=== PATIENT | female | born 1970 | race Caucasian/White ===

== ENCOUNTER 2017-12-17 20:43 | Emergency (ER) | payer OTHER ==
[~2017-12-17] VITALS: Ht 165.1 cm; Wt 90.7 kg
[~2017-12-17 20:43] MED LIST: Advil200 M1 PO; GABA300 PO; HYDR1TAB94 PO; IBUP800 PO; Neurontin 300300 MG PO; Zovirax800 MG PO
[2017-12-17] MEDS ORDERED: Zovirax200 MG PO (21:42)
[2017-12-17] MEDS ORDERED: KETO10 PO (21:42)
[2017-12-17] MEDS ORDERED: Neurontin 100100 MG PO (21:42)
== END 2017-12-17 21:55 | disposition home or self-care (01) ==
LOC: ER 20:43
DX: B02.29 Other postherpetic nervous system involvement (principal); B02.9 Zoster without complications; F17.200 Nicotine dependence, unspecified, uncomplicated; Z88.1 Allergy status to other antibiotic agents; Z79.899 Other long term (current) drug therapy
CPT/HCPCS: 99282

== ENCOUNTER → 2018-03-24 | Outpatient (CLI) | payer OTHER ==
[~2018-03-24] MED LIST changes: +Amoxicillin500 MG PO; +KETO10 PO; +Neurontin 100100 MG PO; +Zovirax200 MG PO
[2018-03-26 15:07] LABS: HPV 16 Negative (Negative); HPV 18 Negative (Negative); HPV OTHER HR TYPES Negative (Negative)
== END | disposition home or self-care (01) ==
LOC: LAB 15:34 → LAB SHORT 15:34
PROVIDERS: Obstetrics & Gynecology
DX: Z12.4 Encounter for screening for malignant neoplasm of cervix (principal)
CPT/HCPCS: 87624; G0123

== ENCOUNTER 2018-04-13 11:55 | Emergency (ER) | payer OTHER ==
[~2018-04-13] VITALS: Ht 165.1 cm; Wt 90.7 kg
[2018-04-13] MEDS ORDERED: Naprosyn500 MG PO (13:19)
[2018-04-13] MEDS ORDERED: ALBU90OI INH (13:19)
== END 2018-04-13 13:40 | disposition home or self-care (01) ==
LOC: ER 11:55
DX: J40 Bronchitis, not specified as acute or chronic (principal); Z88.1 Allergy status to other antibiotic agents; F17.210 Nicotine dependence, cigarettes, uncomplicated
CPT/HCPCS: 94640; J1100

== ENCOUNTER 2018-06-26 13:58 | Emergency (ER) | payer OTHER ==
[~2018-06-26] VITALS: Ht 165.1 cm; Wt 95.1 kg
[~2018-06-26 13:58] MED LIST changes: +ALBU90OI INH; +Naprosyn500 MG PO
[2018-06-26] MEDS ORDERED: ONDA4ODT MM (15:28)
== END 2018-06-26 15:36 | disposition home or self-care (01) ==
LOC: ER 13:58
DX: T49.0X1A Poisoning by local antifungal, anti-infective and anti-inflammatory drugs, accidental (unintentional), initial encounter (principal); R11.0 Nausea; Z88.1 Allergy status to other antibiotic agents; Z79.899 Other long term (current) drug therapy; F17.210 Nicotine dependence, cigarettes, uncomplicated
CPT/HCPCS: 99283

== ENCOUNTER 2018-09-22 18:52 | Emergency (ER) | payer OTHER ==
[~2018-09-22] VITALS: Ht 165.1 cm; Wt 91.8 kg
[~2018-09-22 18:52] MED LIST changes: +ONDA4ODT MM
[2018-09-22 19:27] LABS: Source, Urine Clean Catch
[2018-09-22 19:33] LABS: Bilirubin, Urine Neg (Neg); Blood, Urine 2+ (Neg); Glucose Qualitative, Urine Neg (Neg); Ketones, Urine Neg (Neg); Leukocyte Esterase, Urine 3+ (Neg); Nitrite, Urine Neg (Neg); Protein, Urine Neg (Neg); Specific Gravity, Urine 1.025 (1.003-1.022); Urobilinogen, Urine NORM (Normal)
[2018-09-22 19:42] LABS: Appearance, Urine Clear (Clear); Color, Urine Yellow (P-Yellow)
[2018-09-22 19:43] LABS: Bacteria Mod /hpf; Squamous Epithelial Cells Few /hpf (Few); White Blood Cells, Urine 25-50 /hpf (0-5)
[2018-09-22] MEDS ORDERED: CEPH500 PO (20:34)
== END 2018-09-22 20:48 | disposition home or self-care (01) ==
LOC: ER 18:52
PROVIDERS: Physician Assistant
DX: N39.0 Urinary tract infection, site not specified (principal); Z88.1 Allergy status to other antibiotic agents; F17.210 Nicotine dependence, cigarettes, uncomplicated
CPT/HCPCS: 72100; 81001; 87086; 99284-25

== ENCOUNTER 2018-09-28 03:21 | Emergency (ER) | payer OTHER ==
[~2018-09-28] VITALS: Ht 165.1 cm; Wt 88.0 kg
[~2018-09-28 03:21] MED LIST changes: +CEPH500 PO
[2018-09-28 04:18] LABS: Source, Urine Clean Catch
[2018-09-28 04:20] LABS: BASOPHILS ABSOLUTE AUTO 0.08 K/mm3 (0.00-0.23); BASOPHILS PERCENT AUTO 1 % (0-2); EOSINOPHILS ABSOLUTE AUTO 0.22 K/mm3 (0.00-0.68); EOSINOPHILS PERCENT AUTO 2 % (0-6); Hematocrit 42.1 % (33.0-51.0); Hemoglobin 14.2 g/dL (11.5-16.0); IMMATURE GRAN ABSOLUTE AUTO 0.03 K/mm3 (0.00-0.10); IMMATURE GRAN PERCENT AUTO 0 % (0-1); LYMPHOCYTES ABSOLUTE AUTO 3.29 K/mm3 (0.84-5.20); LYMPHOCYTES PERCENT AUTO 29 % (21-46); MONOCYTES ABSOLUTE AUTO 0.75 K/mm3 (0.16-1.47); MONOCYTES PERCENT AUTO 7 % (4-13); Mean Corpuscular HGB 31.9 pg (26.0-34.0); Mean Corpuscular HGB Conc 33.7 g/dL (31.5-36.5); Mean Corpuscular Volume 95 fL (80-100); Mean Platelet Volume 10.3 fL (9.1-12.4); NEUTROPHILS ABSOLUTE AUTO 6.86 K/mm3 (1.96-9.15); NEUTROPHILS PERCENT AUTO 61 % (41-73); Platelet Count 220 K/mm3 (150-400); RDW Coefficient Variation 12.6 % (11.7-14.2); RDW Standard Deviation 43.8 fL (35.1-46.3); Red Blood Cell Count 4.45 M/mm3 (3.80-5.20); White Blood Cell Count 11.23 K/mm3 (4.00-11.30)
[2018-09-28 04:20] LABS: Bilirubin, Urine Neg (Neg); Blood, Urine 3+ (Neg); Glucose Qualitative, Urine Neg (Neg); Ketones, Urine Neg (Neg); Leukocyte Esterase, Urine 3+ (Neg); Nitrite, Urine Neg (Neg); Protein, Urine Neg (Neg); Specific Gravity, Urine 1.025 (1.003-1.022); Urobilinogen, Urine NORM (Normal)
[2018-09-28 04:21] LABS: Appearance, Urine Clear (Clear); Color, Urine Yellow (P-Yellow)
[2018-09-28 04:27] LABS: Bacteria Mod /hpf; Red Blood Cells, Urine 0-2 /hpf (0-2); Squamous Epithelial Cells Rare /hpf (Few)
[2018-09-28 04:38] LABS: Alanine Aminotransfer (ALT/SGP 35 U/L (12-78); Albumin, Blood 4.1 g/dL (3.4-5.0); Albumin/Globulin Ratio 1.1 (0.8-1.8); Alk Phos 68 U/L (50-136); Anion Gap 8 mmol/L (6-16); Aspartate Aminotrans (AST/SGOT 34 U/L (12-37); Bilirubin, Total 0.4 mg/dL (0.1-1.0); Blood Urea Nitrogen 25 mg/dL (8-24); Bun/Creatinine Ratio 38.2 (12.0-20.0); CO2, Blood 23 mmol/L (21-32); Calcium, Blood 9.5 mg/dL (8.5-10.1); Chloride, Blood 107 mmol/L (98-108); Creatinine, Blood 0.65 mg/dL (0.40-1.00); Globulin, Blood 3.8 g/dL (2.2-4.0); Glomerular Filtration Rate >60 (60-); Glucose, Blood 93 mg/dL (70-99); Potassium, Blood 4.6 mmol/L (3.5-5.5); Sodium, Blood 138 mmol/L (136-145); Total Protein, Blood 7.9 g/dL (6.4-8.2)
== END 2018-09-28 06:55 | disposition home or self-care (01) ==
LOC: ER 03:21
PROVIDERS: Emergency Medicine
DX: K59.00 Constipation, unspecified (principal); Z87.891 Personal history of nicotine dependence
CPT/HCPCS: 36415; 74176; 80053; 81001; 85025; 87086; 96361; 96374; 99284-25; J1885; J7030